=== PATIENT | male | born 1960 ===

== ENCOUNTER 2018-05-02 08:18 | Emergency (ER) | payer SELFPAY ==
[2018-05-02 08:28] VITALS: TEMP 98.2; O2SAT 96
[2018-05-02 08:29] VITALS: BMI 28.2
--- NOTE | 2018-05-02 08:47 | ED PDOC ---
Upper Extremity Pain/Injury Time Seen by Provider: 05/02/18 08:37 History Per: Patient Onset/Duration Of Symptoms: Days (4) Severity: Mild Exacerbating Factor(s): Movement Additional Complaint(s): Heavy wood plank fell onto roght hand palmar aspect 4 days ago. Has had pain worse on flexion of hand since. No fever. Nonpenetrating injury Past Medical History Vital Signs: Last Vital Signs Temp 98.2 F 05/02/18 08:27 Pulse 62 05/02/18 08:27 Resp 16 05/02/18 08:27 BP 153/94 H 05/02/18 08:27 Pulse Ox 96 05/02/18 08:27 - Medical History PMH: Asthma, Bronchitis, HTN, Kidney Stones, Chronic Kidney Disease - Family History Family History: States: Unknown Family Hx, Diabetes - Immunization History Hx Tetanus Toxoid Vaccination: No Hx Influenza Vaccination: No Hx Pneumococcal Vaccination: No - Home Medications Home Medications: Ambulatory Orders Medication Instructions Recorded Albuterol 0.083% [Albuterol 3 ml IH Q8H #30 neb 03/29/18 Sulfate 3 Ml] Albuterol Sulfate [Ventolin Hfa] 2 puff IH Q3 03/29/18 Aspirin 81 mg PO DAILY 03/29/18 Atorvastatin [Lipitor] 20 mg PO DAILY 03/29/18 Fluticasone/Salmeterol [Advair 1 each IH BID #60 blst.w.dev 03/29/18 250-50 Diskus] Lisinopril [Zestril] 10 mg PO DAILY 03/29/18 Prednisone 40 mg PO DAILY #4 tablet 03/29/18 Naproxen [Naprosyn] 500 mg PO Q12H #20 tab 05/02/18 - Allergies Allergies/Adverse Reactions: Allergies Allergy/AdvReac Type Severity Reaction Status Date / Time peanut Allergy SHORTNESS Verified 05/02/18 08:49 OF BREATH seasonal AdvReac ITCHING Uncoded 03/07/18 14:47 Review of Systems Constitutional: Negative for: Fever Musculoskeletal: Positive for: Hand Pain Physical Exam - Physical Exam Appears: Positive for: Non-toxic, No Acute Distress Extremity: Positive for: Other (Right hand palmar aspect mild swelling and tenderness with minimal ecchymosis. Pain worse when making a fist. No motor or sensory deficits) - ECG O2 Sat by Pulse Oximetry: 96 Disposition - Clinical Impression Clinical Impression: Hand contusion - Patient ED Disposition Is Patient to be Admitted: No Counseled Patient/Family Regarding: Studies Performed, Diagnosis, Need For Followup, Rx Given - Disposition Referrals: Tiana Nichols MD [Staff Provider] - Disposition: Routine/Home Disposition Time: 09:25 Condition: FAIR Prescriptions: Naproxen [Naprosyn] 500 mg PO Q12H #20 tab Instructions: Contusion (DC) Print Language: MOZAMBICAN
[2018-05-02 10:13] VITALS: BP 150/89; PULSE 64; RESP 18
--- NOTE | 2018-05-02 10:25 | RAD ---
PROCEDURE: Right Hand Radiographs. HISTORY: trauma COMPARISON: None. FINDINGS: BONES: No acute fracture or destructive bony lesion identified. JOINTS: Normal. No osteoarthritic changes. SOFT TISSUES: Normal. OTHER FINDINGS: None. IMPRESSION: Unremarkable right hand radiographs.
== END 2018-05-02 10:10 | disposition home or self-care (01) ==
LOC: H.ER 08:18
DX: S60.229A Contusion of unspecified hand, initial encounter (principal); J45.909 Unspecified asthma, uncomplicated; N18.9 Chronic kidney disease, unspecified; Z79.82 Long term (current) use of aspirin; Z87.442 Personal history of urinary calculi; I12.9 Hypertensive chronic kidney disease with stage 1 through stage 4 chronic kidney disease, or unspecified chronic kidney disease